=== PATIENT | male | born 1950 | race Caucasian/White ===

== ENCOUNTER 2017-04-24 10:35 | Day surgery (SDC) | payer MEDICARE, BC ==
[~2017-04-24 10:35] MED LIST: ALEN1TAB48 PO; ATOR40TA16 PO; CALC1CAP PO; FURO40TA PO; HUMALOG SQ; INSU1INJ5 SQ; LANCETS1 MI1; LEVO25TA4 PO; LYRI50CA PO; MIDO10TA PO; OMEP20CA2 PO; ONDA4TAB7 SL; ONETTES4; PRED5TAB PO; PREG25 PO; TUMS500C PO
[2017-04-24] MEDS ORDERED: CHLORHEXIDINE GLUCONATE 2 % 1 PACK (2 CLOTHS) TOPICAL SCH (11:00)
[2017-04-24] MEDS ORDERED: VANCOMYCIN 1000 MG/NS 250 ML IV SCH ×2 (11:00)
[2017-04-24] MEDS ORDERED: MUPIROCIN 2% OINT 1 APPLIC/GM SYR NASAL SCH (11:00)
[2017-04-24] MEDS ORDERED: ceFAZolin 2 GM PREMIX 50 ML IV SCH (11:00)
[2017-04-24] MEDS ORDERED: NS 1000 ML IV SCH (11:00)
[2017-04-24] MEDS ORDERED: POVIDONE IODINE 5% (ANTISEPSIS KIT) 4 APPLICATIONS EACH NARE SCH (11:00)
[2017-04-24] MEDS ORDERED: NEPHTAB3 PO (11:38)
--- NOTE | 2017-04-24 13:19 | MA ---
cc: DARON PARHAM MD DATE 04/24/[address] Daron Parham PROCEDURE PERFORMED Loop recorder insertion INDICATION Atrial fibrillation diagnosis DESCRIPTION OF PROCEDURE The patient was brought to the DOC unit in the postabsorptive state after informed consent was obtained. A [employer] LINQ loop recorder was inserted subcutaneously to the left chest. The patient tolerated the procedure well without any apparent complications. The initial R-wave was 0.28 mV. Tachybrady pause and atrial fibrillation detection was enabled. The serial number was [id number]. MD VIN Resendiz/ANITA /1:14 PM /1:16 PM
== END 2017-04-24 15:40 | disposition home or self-care (01) ==
LOC: HDOC 10:35 → HDIC 10:35 → HDOC 15:40
PROVIDERS: ATTEND Nuclear Medicine Nuclear Cardiology
DX: I48.91 Unspecified atrial fibrillation (principal); I95.9 Hypotension, unspecified; E78.5 Hyperlipidemia, unspecified; I12.0 Hypertensive chronic kidney disease with stage 5 chronic kidney disease or end stage renal disease; N18.6 End stage renal disease; E11.9 Type 2 diabetes mellitus without complications; Z79.4 Long term (current) use of insulin; Z99.2 Dependence on renal dialysis
CPT/HCPCS: 33282; C1764; J0690; J7030

== ENCOUNTER → 2017-05-18 | Outpatient (CLI) | payer MEDICARE, BC ==
[~2017-05-18] MED LIST changes: +LYRI75CA PO; +NEPHTAB3 PO; -ONDA4TAB7 SL; +RITU500I IV; +[UNRECOGNIZED DRUG - OTHER]
== END ==
LOC: PHPRE 14:09
PROVIDERS: ATTEND Ophthalmology
DX: H26.9 Unspecified cataract (principal)

== ENCOUNTER → 2017-06-01 | Day surgery (SDC) | payer MEDICARE, BC ==
--- NOTE | 2017-05-21 08:43 | MH ---
cc: HEIDY TRAN DATE OF ADMISSION 06/01/2017 ADMISSION DIAGNOSIS Cataract left eye. HISTORY OF PRESENT ILLNESS This 66-year-old white male is coming through [facility] for the purpose of a lens extraction of the left eye with intraocular lens implant under local anesthesia. He has noted to have decreasing visual acuity interfering with his daily activities and elected to have the above procedure. His best corrected visual acuity is 20/25 in the right eye and 20/200 in the left eye. This decreases in room light and 20/30 in the right eye and less than 20/200 in the left eye. PAST MEDICAL HISTORY The patient has a history of: 1. 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 2. He also has thyroid problems. 3. Cholesterol problems 4. Diabetes 5. Low blood pressure SOCIAL HISTORY He says he quit smoking in July of 2015. PAST SURGICAL HISTORY 1. Sinus surgery 2. Surgery for a fistula on the left arm. 3. Heart loop recorder implant. MEDICATIONS Daily medications include: 1. Rituxan 2. Levothyroxine 3. Prednisone 2.5 mg 4. Atorvastatin 5. Omeprazole 6. Calcium acetate 7. Furosemide 8. Lyrica 9. Vitamin D 10. Vitamins with the AREDS-2 type. 11. Lantus and Humalog insulin 12. Alendronate 13. Sodium 14. Vitamin E 15. He gets Midodrine during his dialysis to raises blood pressure and heparin with the dialysis as well. ALLERGIES HE IS ALLERGIC TO SULFA. SOCIAL HISTORY Two pack per day smoker for 50 years and does not drink alcohol. FAMILY HISTORY Positive for mother and sister with cataracts and mother with glaucoma. REVIEW OF SYSTEMS HEAD: Patient denies severe headaches, dizziness or recent head injury. EARS: Patient has tinnitus in his ears bilaterally. Denies hearing loss, ear pain, or discharge in the ears. NOSE: Patient denies nasal discharge, obstruction or frequent colds. MOUTH AND THROAT: Patient denies soreness of the mouth or tongue, bleeding gums, trouble swallowing, changes in voice or sore throat. NECK: Patient denies neck pain or swelling, limitation of neck movement or neck injury. CARDIOPULMONARY SYSTEM: Denies shortness of breath, orthopnea, chronic cough, sputum production, hemoptysis, chest pain, wheezing, or light-headedness. GI SYSTEM: Patient denies poor appetite, nausea, vomiting, abdominal pain, ulcers, hemorrhoids or change in bowel habits. SYSTEM: The patient denies urinary frequency, dysuria, change in urine color. NERVOUS SYSTEM: He has a neuropathy in his hands and feet. Patient denies convulsions, vertigo, stroke, numbness or weakness. PHYSICAL EXAMINATION VITAL SIGNS: Blood pressure is 96/58, pulse 68, respirations 16. HEAD: Normocephalic, atraumatic. NOSE: Without rhinorrhea. THROAT: Clear. NECK: Supple. CHEST: Clear. HEART: Regular rhythm. ABDOMEN: Without tenderness. EXTREMITIES: Without edema. NEUROLOGIC: Within normal limits. MENTAL STATUS: Within normal limits. EYE EXAMINATION The patient's best corrected visual acuity is 20/30 in the right eye and less than 20/200 in room light. In a dark room, he does see 20/25 in the right eye, but still only 20/200 in the left eye. Visual tipton are full to confrontation testing. Extraocular muscle exam reveals full versions with orthophoria at distance and near. Pupils are 3 mm equal, round, and reactive to light without afferent defect. Anterior segment examination reveals iris nevi in both eyes. There are nuclear sclerotic and posterior subcapsular cataract changes much greater in the left eye than the right. Intraocular pressure is 18 in the right eye and 15 in the left by applanation tonometry. Dilated fundus exam revealed sharp disks with cup-to-disk ratio of 0.3 bilaterally. There is some drusen in the macula of each eye and epiretinal membrane is present in the macula of each eye. A posterior vitreous detachment is present bilaterally. IMPRESSION 1. Bilateral cataracts, left greater than right. 2. Posterior vitreous detachment both eyes. 3. Epiretinal membrane both eyes. 4. Mild dry macular degeneration both eyes. PLAN Lens extraction of the left eye with intraocular lens implant under local anesthesia. Iris retractors will be used in this case as the pupils do not dilate well. The patient has been cleared medically. He has been counseled as to the risks, benefits and alternatives and elected to proceed. I feel that cataract surgery will improve the quality of life and activities of daily living in this patient. Heidy N. Share, MD SECONDARY MARKET MANAGER/ANITA /8:22 AM /8:36 AM
[~2017-06-01] VITALS: Ht 180.3 cm; Wt 104.5 kg
[~2017-06-01] MED LIST changes: +ACETYLCHOLINE CHL OPHT SOLN 1:100 2 ML VIAL ONE; +CHLORHEXIDINE GLUCONATE 2 % 1 PACK (2 CLOTHS) TOPICAL PRN; +CYCLOPENTOLATE HCL 1% OPHT SOLN 2 ML BTL ONE; +DICLOFENAC SOD 0.1% OPHT SOLN 2.5 ML BTL ONE; +EPINEPHrine HCL PF/SF (1:1000) 1 MG/ML AMP I-OCULAR ONE; +GATIFLOXACIN 0.5% OPHT SOLN 2.5 ML BTL ONE; +HYALURONIDASE/LIDOCAINE/BUPIVACAINE 5 ML SYR LEFT EYE SCH; +HYALURONIDASE/LIDOCAINE/BUPIVACAINE 5 ML SYR ONE; +LACTATED RINGER'S 1000 ML IV PRN; -LYRI50CA PO; +METOPROLOL TARTRATE 25 MG TAB PO PRN; +PHENYLEPHRINE HCL 2.5% OPTH SOLN 2 ML BTL ONE; +PILOCARPINE HCL 2% OPHT SOLN 15 ML BTL ONE; +POVIDONE IODINE 5% (ANTISEPSIS KIT) 4 APPLICATIONS EACH NARE PRN; -PRED5TAB PO; -PREG25 PO; +PROPARACAINE HCL 0.5% OPHT SOLN 15 ML BTL LEFT EYE ONE; +PROPARACAINE HCL 0.5% OPHT SOLN 15 ML BTL ONE; +PROPOFOL 200 MG/20 ML AMP ONE; +SODIUM CHLORID 0.9% 500 ML INJ 500 ML ONE; +SODIUM CHLORID 0.9% 500 ML IV PRN; +TOBRAMYCIN/DEXAMETHASONE OPTH OINT 3.5 GM TUBE ONE; +TROPICAMIDE 1% OPHT SOLN 15 ML BTL ONE; -TUMS500C PO; +VISCOAT OPHT IRRIG SOLN 0.75 ML SYRINGE ONE
[2017-06-01 10:20] VITALS: PULSE 84
[2017-06-01] MEDS: GATIFLOXACIN 0.5% OPHT SOLN 2.5 ML BTL LEFT EYE SCH ×4 (10:23→10:32)
[2017-06-01] MEDS: DICLOFENAC SOD 0.1% OPHT SOLN 2.5 ML BTL LEFT EYE SCH ×4 (10:23→10:32)
[2017-06-01] MEDS: CYCLOPENTOLATE HCL 1% OPHT SOLN 2 ML BTL LEFT EYE SCH ×4 (10:23→10:32)
[2017-06-01] MEDS: TROPICAMIDE 1% OPHT SOLN 15 ML BTL LEFT EYE SCH ×4 (10:23→10:32)
[2017-06-01] MEDS: PHENYLEPHRINE HCL 2.5% OPTH SOLN 2 ML BTL LEFT EYE SCH ×4 (10:23→10:32)
[2017-06-01 10:56] VITALS: PULSE 83
[2017-06-01 13:35] VITALS: TEMP 98.2
--- NOTE | 2017-06-01 13:38 | MP ---
cc: HEIDY PAYTON DATE OF SURGERY: 06/01/2017 PREOPERATIVE DIAGNOSIS Cataract, left eye. POSTOPERATIVE DIAGNOSIS Cataract, left eye. OPERATION Extracapsular cataract extraction with posterior chamber intraocular lens implant by phacoemulsification, left eye. SURGEON Heidy Payton M.D. ANESTHESIA Local. COMPLICATIONS None. INDICATIONS See history and physical previously dictated. OPERATIVE PROCEDURE The patient had adequate retrobulbar and eyelid blocks administered in the holding area and was brought to the operating room. The left eye was prepped and draped in the usual sterile ophthalmic manner. A lid speculum was inserted in the left eye. A 4-0 silk bridle suture was placed through the conjunctiva near the superior rectus muscle and it was tagged to the drape. A fornix-based conjunctival flap was prepared spanning approximately 5 mm in width. Hemostasis was obtained with wet-field cautery. A 3.5 mm groove was made 1 mm from the limbus and dissected up to the limbus in the form of a scleral pocket incision. A stab incision was then made at the 2 o'clock position. Viscoelastic was injected into the anterior chamber. In order to maintain an adequately dilated pupil, it was elected to use iris retractors in this case. Stab incisions were made at the 1 o'clock, 3 o'clock, 5 o'clock, 8 o'clock and 10 o'clock positions. Iris retractors were then inserted through the stab incisions in the peripheral cornea and positioned to enlarge the size of the pupil. The anterior chamber was entered with a 2.75 mm keratome through the scleral pocket incision. A 360 degree continuous curvilinear capsulorrhexis was then performed. Hydrodissection was utilized to divide the nucleus into inner and outer components and to separate the cortex from the capsule. Phacoemulsification was then utilized to remove the nucleus. The outer nuclear layer was removed with irrigation and aspiration and short bursts of ultrasound as necessary. The cortex was removed with the irrigation-aspiration handpiece. The posterior capsule was polished with the capsule polisher. Viscoelastic was injected into the capsular bag. The intraocular lens was inspected and found to be in good condition. The lens utilized was an Ivan model SA60AT with a power of +18.5 diopters. The lens was inserted into the capsular bag. The five iris retractors were removed. The viscoelastic in the anterior chamber was then removed with the irrigation-aspiration hand piece. Viscoelastic was also removed from beneath the intraocular lens. The anterior chamber was filled with Miochol-E through the stab incision and pressurized. The wound was checked for leaks at this pressure and normalized pressure and there were none. The 4-0 bridle suture was removed. The conjunctival flap was brought down over the wound and secured with cautery. Pilocarpine 2% eye drops were instilled topically. The lid speculum was removed. TobraDex ophthalmic ointment was applied. The eye was double patched and shielded. The patient tolerated the procedure well and left the Operating Room in satisfactory condition. MD REJI Marques/DAVID /1:37 PM /1:39 PM
[2017-06-01 14:30] VITALS: BP 102/53; PULSE 69; RESP 16; O2SAT 99
== END | disposition home or self-care (01) ==
LOC: PHSDC 09:42
PROVIDERS: ATTEND Ophthalmology
DX: H26.9 Unspecified cataract (principal); H43.813 Vitreous degeneration, bilateral; E11.9 Type 2 diabetes mellitus without complications; Z79.4 Long term (current) use of insulin
CPT/HCPCS: 00142; 66984; J0171; J7040; V2632

== ENCOUNTER 2017-10-09 14:13 | Inpatient (IN) | payer MEDICARE, BC ==
[2017-10-09] VITALS (11 sets, daily range): BP systolic 105–164; BP diastolic 56–84; PULSE 46–128; RESP 20–24; TEMP 91.4–97.2; O2SAT 94–100
[~2017-10-09 14:13] MED LIST changes: -ACETYLCHOLINE CHL OPHT SOLN 1:100 2 ML VIAL ONE; +AMIODARONE HCL 150 MG/3 ML VIAL IV ONE; +CALCIUM CHLORIDE 10% SOLN 1 GRAM/10 ML SYR IV ONE; -CHLORHEXIDINE GLUCONATE 2 % 1 PACK (2 CLOTHS) TOPICAL PRN; -CYCLOPENTOLATE HCL 1% OPHT SOLN 2 ML BTL ONE; -DICLOFENAC SOD 0.1% OPHT SOLN 2.5 ML BTL ONE; +EPINEPHrine HCL (1:10,000) 1 MG/10 ML SYRINGE IV ONE; -EPINEPHrine HCL PF/SF (1:1000) 1 MG/ML AMP I-OCULAR ONE; -GATIFLOXACIN 0.5% OPHT SOLN 2.5 ML BTL ONE; +HUMA100I3 SQ; -HUMALOG SQ; -HYALURONIDASE/LIDOCAINE/BUPIVACAINE 5 ML SYR LEFT EYE SCH; -HYALURONIDASE/LIDOCAINE/BUPIVACAINE 5 ML SYR ONE; -LACTATED RINGER'S 1000 ML IV PRN; -LANCETS1 MI1; -METOPROLOL TARTRATE 25 MG TAB PO PRN; +NOREPINEPHRINE 4 MG/4 ML AMP IV ONE; -ONETTES4; -PHENYLEPHRINE HCL 2.5% OPTH SOLN 2 ML BTL ONE; -PILOCARPINE HCL 2% OPHT SOLN 15 ML BTL ONE; -POVIDONE IODINE 5% (ANTISEPSIS KIT) 4 APPLICATIONS EACH NARE PRN; -PROPARACAINE HCL 0.5% OPHT SOLN 15 ML BTL LEFT EYE ONE; -PROPARACAINE HCL 0.5% OPHT SOLN 15 ML BTL ONE; -PROPOFOL 200 MG/20 ML AMP ONE; +SODIUM BICARBONATE 8.4% INJ 50 MEQ/50 ML SYR IV ONE; -SODIUM CHLORID 0.9% 500 ML INJ 500 ML ONE; -SODIUM CHLORID 0.9% 500 ML IV PRN; -TOBRAMYCIN/DEXAMETHASONE OPTH OINT 3.5 GM TUBE ONE; -TROPICAMIDE 1% OPHT SOLN 15 ML BTL ONE; -VISCOAT OPHT IRRIG SOLN 0.75 ML SYRINGE ONE; -[UNRECOGNIZED DRUG - OTHER]
[2017-10-09] MEDS ORDERED: SODIUM CHLORIDE 0.9% FLUSH 10 ML FLUSH IVF PRN (15:00)
[2017-10-09] MEDS ORDERED: EPINEPHrine HCL (1:10,000) 1 MG/10 ML SYRINGE ONE (15:03)
--- NOTE | 2017-10-09 15:07 | PD ---
HPI Chief Complaint: Code Blue Time Seen by Provider: 15:03 Travel History International Travel<30 days: No Contact w/Intl Traveler<30days: No Traveled to known affect area: No History of Present Illness HPI 67-year-old male with a history of end-stage renal disease, dialysis dependent, polyangiitis, who presents via EMS in cardiac arrest. Patient was apparently receiving hemodialysis at home when family members state he yelled out. When family members went into see to evaluate him, they found him unresponsive. When paramedics arrived they found him to be in V. fib cardiac arrest. He was defibrillated twice and pulses were regained. Shortly after EVAC arrived, he was intubated. He went back into V. fib arrest. He had 3 further defibrillation's and 3 rounds of epinephrine. He arrived in cardiac arrest and CPR was in progress. [facility] Past Medical History Arthritis: Yes Autoimmune Disease: No Heart Rhythm Problems: No Cancer: Yes (SKIN CA) Cardiovascular Problems: Yes (IRREGULAR HEART RATE (LOOP RECORDER PLACED) ) High Cholesterol: Yes Chest Pain: No Congestive Heart Failure: No Diabetes: Yes (type 2) Patient Takes Glucophage: No Dialysis: Yes ( THUR SAT) Diminished Hearing: No Endocrine: Yes Gastrointestinal Disorders: Yes (CONSTIPATION ) Genitourinary: Yes Hepatitis: No Hiatal Hernia: No Hypertension: Yes Immune Disorder: No Medical other: Yes (MICROSCOPIC POLYANGIITIS) Musculoskeletal: Yes (WRIST/HAND PAIN R/T NEUROPATHY) Neurologic: Yes (Peripheral neuropathy HANDS & FEET) Psychiatric: No Reproductive: No Respiratory: No Immunizations Current: Yes Renal Failure: Yes (ESRD) Thyroid Disease: No Past Surgical History Surgical History: Unable to Obtain Abdominal Surgery: No AICD: No Body Medical Devices: LOOP RECORDER, LEFT ARM FISTULA Cardiac Surgery: No Ear Surgery: No Endocrine Surgery: No Eye Surgery: Yes (LEFT EYE CATARACT REMOVAL WITH LENS IMPLANT) Genitourinary Surgery: No Gynecologic Surgery: No Joint Replacement: No Oral Surgery: Yes (SINUS SURERY DUE TO OBSTRUCTION) Pacemaker: No Thoracic Surgery: Yes (HEMODIALYSIS PORT R CHEST (REMOVED)) Other Surgery: Yes ( FISTULA PLACEMENT (LEFT ARM)) Social History Alcohol Use: No Tobacco Use: No Substance Use: No Allergies-Medications (Allergen,Severity, Reaction): Coded Allergies: Sulfa (Sulfonamide Antibiotics) (Unverified Allergy, Mild, hives, 09/14/17) Reported Meds & Prescriptions Reported Meds & Active Scripts Active Humalog Kwikpen Pen Inj (Insulin Lispro (Human) Inj) 300 Unit/3 Ml Pen 1 Units SQ DIRECTED Omeprazole 20 Mg Cap 20 Mg PO DAILY Furosemide 40 Mg Tab 40 Mg PO DAILY Levemir Flextouch Pen Inj (Insulin Detemir) 300 unit/3 ML Pen 12 Units SQ BID Levothyroxine (Levothyroxine Sodium) 25 Mcg Tab 25 Mcg PO DAILY Lyrica (Pregabalin) 75 Mg Cap 75 Mg PO BID Atorvastatin (Atorvastatin Calcium) 40 Mg Tab 40 Mg PO HS Calcium Acetate (Phosphate Binder) 667 Mg Cap 667 Mg PO TID Reported Rituxan Inj (Rituximab) 10 Mg/Ml Inj IV EVERY 6 MONTHS Nephro-Hugo (B-Complex W/ C & Folic Acid) 1 Tab 1 Tab PO DAILY Alendronate (Alendronate Sodium) 70 Mg Tab 70 Mg PO Q7D Midodrine 10 Mg Tab 10 Mg PO WITH DIALYSIS Review of Systems ROS Limitations: Intubated Except as stated in HPI: all other systems reviewed are Neg (Cardiac arrest) Physical Exam Narrative GENERAL: Well developed well-nourished gentleman who is intubated and chest compressions were in place. SKIN: Focused skin assessment warm/dry. HEAD: Atraumatic. Normocephalic. EYES: Pupils equal and round and reactive around 3 mm. Minimally reactive.. No scleral icterus. No injection or drainage. ENT: No nasal bleeding or discharge. Mucous membranes pink and moist. ET tube in place. 7.0 at the 24 Denys NECK: Trachea midline. Large neck. No palpable carotid pulses initially. CARDIOVASCULAR: V. fib on the monitor. RESPIRATORY: Breath sounds equal bilaterally. The patient was being bagged through the ET tube. ABDOMEN: Soft, obese, nondistended. There is bruising noted is infraumbilical area. MUSCULOSKELETAL: No obvious deformities. No clubbing. No cyanosis. No edema. Left intraosseous in place. NEUROLOGICAL: Awake and alert 0. Cardiac arrest. Data Data Last Documented VS Vital Signs Date Time Temp Pulse Resp B/P (MAP) Pulse Ox O2 Delivery O2 Flow Rate FiO2 10/09/17 14:57 127 20 142/73 (96) 100 100 10/09/17 14:52 Ventilator Orders Orders Electrocardiogram (10/09/17 14:48) Ckmb (Isoenzyme) Profile (10/09/17 14:48) Complete Blood Count With Diff (10/09/17 14:48) Comprehensive Metabolic Panel (10/09/17 14:48) Magnesium (Mg) (10/09/17 14:48) Prothrombin Time / Inr (Pt) (10/09/17 14:48) Act Partial Throm Time (Ptt) (10/09/17 14:48) Troponin I (10/09/17 14:48) Chest, Single Ap (10/09/17 14:48) Ecg Monitoring (10/09/17 14:48) Bilateral Bp Monitoring (10/09/17 14:48) Iv Access Insert/Monitor (10/09/17 14:48) Oximetry (10/09/17 14:48) Oxygen Administration (10/09/17 14:48) Sodium Chloride 0.9% Flush (Ns Flush) (10/09/17 15:00) Type And Screen (10/09/17 14:48) Lactic Acid Sepsis Protocol (10/09/17 14:55) Blood Culture (10/09/17 14:55) Epinephrine (1:10,000) Inj (Epinephrine (10/09/17 15:03) Ct Brain W/O Iv Contrast(Rout) (10/09/17 ) Labs Laboratory Tests Test 10/09/17 14:50 Prothrombin Time 11.5 SEC Prothromb Time International Ratio 1.1 RATIO Activated Partial Thromboplast Time 24.3 SEC MDM Medical Decision Making Medical Screen Exam Complete: Yes Emergency Medical Condition: Yes Differential Diagnosis V. fib arrest versus hyperkalemia versus STEMI Narrative Course 67-year-old male with history of renal failure, hemodialysis dependent patient, who is brought in in V. fib cardiac arrest by EMS. Patient had received a total of 5 defibrillations and 3 mg of epinephrine. Patient arrived in V. fib arrest. Patient was intubated. The patient was given epinephrine, 1 mg, 100 mEq of sodium bicarbonate, 1000 mg of calcium chloride and 300 mg of amiodarone. The patient was defibrillated into sinus tach. Patient's heart rate was in the 120s. A central line was placed by this physician. Shortly after the placement central line the patient started a bradycardia down. 0.5 mg of epinephrine was given IV and a Levophed drip was ordered. The patient went back into cardiac arrest. The patient was given another dose of epinephrine, another 50 mEq of epinephrine and 150 mg of IV amiodarone. The patient was defibrillated again. Pulses were obtained. The patient had Levophed initiated initially at 5 mcg. The micrograms were increased to 20 mics. The patient's EKG postarrest shows ST depression in the lateral leads. There is no obvious acute ST elevation. The patient was discussed with Dr. Froylan Forbes, cutter wet machine, who is at the bedside after the second defibrillation into sinus tach. He will arrange to take the patient to the CVICU and will initiate hypothermia protocol. Critical Care Narrative Aggregate critical care time was 60 minutes. Time to perform other separately billable procedures was not included in the critical care time. My time did not include minutes spent treating any other patients simultaneously or on activities that did not directly contribute to the patient's treatment. The services I provided to this patient were to treat and/or prevent clinically significant deterioration that could result in: I provided critical care services requiring my management, as noted below: Chart data review, documentation time, medication orders and management, vital sign assessments/reviewing monitor data, ordering and reviewing lab tests, ordering and interpreting/reviewing x-rays and diagnostic studies, care of the patient and discussion of the patient with the admitting physicians. Procedures Procedure Narrative CENTRAL VENOUS LINE: The site was prepped with Betadine and sterilely draped. It was infiltrated with 1% lidocaine plain. The deep vein was cannulated using normal Seldinger technique. A central line was placed in the right femoral site and secured. The site was sterilely dressed. The patient tolerated the procedure well. Diagnosis Primary Impression: V. fib cardiac arrest with return of spontaneous circulation Additional Impressions: End-stage renal disease, dialysis dependent Diabetes mellitus type 2, insulin dependent Admitting Information Admitting Physician Requests: Admit Gil Snow MD Oct 09, 2017 15:07
[2017-10-09 15:26] LABS: INTERNATIONAL NORMALIZED RATIO 1.1 RATIO; PROTHROMBIN TIME - PATIENT 11.5 SEC (9.8-11.6)
--- NOTE | 2017-10-09 15:31 | RADRPT ---
EXAM DATE/TIME: 10/09/2017 15:17 [facility] COMPARISON: CT BRAIN W/O CONTRAST, February 08, 2016, 13:33. INDICATIONS : Altered mental status, post code. RADIATION DOSE: 43.15 CTDIvol (mGy) MEDICAL HISTORY : Renal disease, end stage. Hypercholesterolemia. Vented. SURGICAL HISTORY : Sinus sx. ENCOUNTER: Initial ACUITY: 1 day PAIN SCALE: Non-responsive LOCATION: Bilateral cranial TECHNIQUE: Multiple contiguous axial images were obtained of the head. Using automated exposure control and adj ustment of the mA and/or kV according to patient size, radiation dose was kept as low as reasonably a chievable to obtain optimal diagnostic quality images. DICOM format image data is available electro nically for review and comparison. FINDINGS: There is streak and motion artifact degrading the lower images through the posterior fossa and brain stem regions which are poorly visualized. CEREBRUM: The ventricles are normal for age. No evidence of midline shift, mass lesion, hemorrhage or acute in farction. No extra-axial fluid collections are seen. POSTERIOR FOSSA: The cerebellum and brainstem are intact. The 4th ventricle is midline. The cerebellopontine angle i s unremarkable. EXTRACRANIAL: The visualized portion of the orbits is intact. SKULL: The calvaria is intact. No evidence of skull fracture. CONCLUSION: 1. Suboptimal examination secondary to streak and motion artifact. 2. No evidence of hemorrhage or mass effect identified. Lux Murphy MD on October 09, 2017 at 15:26 Board Certified Radiologist. This report was verified electronically.
[2017-10-09 15:33] LABS: AST (GOT) 76 U/L (15-37); BICARBONATE 21.8 MEQ/L (21.0-32.0); BLOOD UREA NITROGEN 35 MG/DL (7-18); CALCIUM 9.7 MG/DL (8.5-10.1); CHLORIDE 98 MEQ/L (98-107); CREATININE 6.19 MG/DL (0.60-1.30); GLOMERULAR FILTRATION RATE 9 ML/MIN (>89); GLUCOSE,RANDOM 353 MG/DL (74-106); MAGNESIUM 2.5 MG/DL (1.5-2.5); SODIUM (NA) 139 MEQ/L (136-145)
[2017-10-09 15:35] LABS: LACTIC ACID SEPSIS PROTOCOL 11.9 mmol/L (0.4-2.0)
[2017-10-09 15:38] LABS: ALKALINE PHOSPHATASE 125 U/L (45-117); ALT (GPT) 83 U/L (12-78); TOTAL BILIRUBIN ADULT 0.6 MG/DL (0.2-1.0); TOTAL PROTEIN 5.7 GM/DL (6.4-8.2)
--- NOTE | 2017-10-09 15:38 | RADRPT ---
EXAM DATE/TIME: 10/09/2017 14:53 [facility] COMPARISON: CHEST SINGLE AP, May 28, 2016, 8:56. INDICATIONS : Post intubation, nasogastric tube, post code. MEDICAL HISTORY : Hypercholesterolemia. Hypertension. Diabetes mellitus type 2. End stage renal disease. SURGICAL HISTORY : Loop recorder ENCOUNTER: Initial ACUITY: Encounter PAIN SCORE: Non-responsive. LOCATION: chest FINDINGS: A single AP supine portable view of the chest was obtained. The tip of the lung apices were cut off t he exam. There is an endotracheal tube in place with the tip approximately 5 cm above the alejandra. The re's been placement of nasogastric tube which is seen coursing through the esophagus and proximal sto mach. No confluent infiltrates or effusions are identified. The heart size appears at the upper limit s of normal. The bony thorax remains intact. CONCLUSION: 1. Interval intubation and placement of nasogastric tube. 2. No confluent infiltrates or effusions. Lux Murphy MD on October 09, 2017 at 15:35 Board Certified Radiologist. This report was verified electronically.
[2017-10-09 15:44] LABS: TROPONIN I 1.48 NG/ML (0.02-0.05)
[2017-10-09] MEDS: SODIUM CHLOR 0.9% 1000 ML INJ 1,000 ML IV SCH (16:23)
[2017-10-09] MEDS ORDERED: AMIODARONE INJ 150 MG in DEXTROSE 5% IN WATER 100ML INJ 100 ML IV ONE ×2 (16:23)
[2017-10-09] MEDS ORDERED: MIDAZOLAM 100 MG/100 ML INJ 100 ML IV PRN (16:30)
[2017-10-09] MEDS ORDERED: busPIRone HCL 5 MG TAB NG PRN (16:30)
[2017-10-09] MEDS ORDERED: DEXTROSE 50% IN WATER 50 ML VIAL(D50) IV PUSH PRN (16:30)
[2017-10-09] MEDS ORDERED: ONDANSETRON HCL 4 MG/2 ML VIAL IV PUSH PRN (16:30)
[2017-10-09] MEDS ORDERED: fentaNYL DRIP 250 ML IV PRN (16:30)
[2017-10-09] MEDS ORDERED: ACETAMINOPHEN 325 MG TAB PO PRN (16:30)
[2017-10-09] MEDS ORDERED: HEPARIN SODIUM - IV 10,000 UNITS/10 ML VIAL IV PUSH ONE (16:30)
[2017-10-09] MEDS ORDERED: ASPIRIN 300 MG SUPP RECTAL ONE (16:30)
[2017-10-09] MEDS ORDERED: LORazepam 2 MG/ML VIAL IV PUSH PRN (16:30)
[2017-10-09] MEDS ORDERED: ARTIFICIAL TEARS OPTH OINT 3.5 APPLIC/3.5 GM TUBO EACH EYE PRN (16:30)
[2017-10-09] MEDS ORDERED: SODIUM CHLORIDE 0.9% FLUSH 10 ML FLUSH IV FLUSH PRN (16:30)
[2017-10-09] MEDS ORDERED: CHLORHEXIDINE GLUCONATE 2 % 1 PACK (2 CLOTHS) TOP PRN (16:30)
[2017-10-09] MEDS ORDERED: MEPERIDINE HCL 25 MG/ML VIAL IV PUSH PRN (16:30)
[2017-10-09] MEDS ORDERED: MISCELLANEOUS NURSING INFORMATION XX SCH (16:30)
[2017-10-09] MEDS ORDERED: RESP: ALBUTEROL 2.5 MG/IPRATROPIUM 0.5 MG NEB (PRN) INH (16:30)
[2017-10-09] MEDS ORDERED: AMIODARONE INJ 450 MG in DEXTROSE 5% IN WATE(EXCEL) INJ 241 ML IV PRN ×2 (16:33)
--- NOTE | 2017-10-09 16:39 | HHI.HP ---
HPI Service Critical Care Medicine Primary Care Physician No Primary Care Physician Admission Diagnosis v fib cardiac arrest with ROSC, renal failure hemodialysis dependent Diagnosis: Chief Complaint: Out of hospital V-fib arrest Travel History International Travel<30 Days: No Contact w/Intl Traveler <30 Da: No Traveled to Known Affected Are: No History of Present Illness This is a 67-year-old male with a history of end-stage renal disease on home hemodialysis who presents from home where he was actively undergoing dialysis and slumped over and became unresponsive. Per EMS initial rhythm was ventricular fibrillation he was defibrillated a number of times in the out of hospital setting. ACLS ensued. ACLS was ongoing when he reached the emergency department which was continued. After multiple additional DC cardioversions, ROSC was obtained. I was called emergently to the bedside. I immediately came to the bedside and found an unresponsive patient with pupils which were 4 mm and reactive but otherwise is a GCS of 3. No additional information is available from the patient, and ROS is unobtainable. Per review of the medical record, he has a complicated history and was recently had a loop recorder placed in April 2017, but I do not of the indication for this. His head CT is negative for acute bleed. His BMP is remarkable for potassium 3.1, creatinine of 6.19, glucose of 353, troponin is elevated at 1.48, lactate is 11.9 initially. White blood cell count of 23,000, hemoglobin 7.9 with an unknown baseline. Due to his poor neurologic function and the clear timeline from event to ROSC, therapeutic hypothermia was initiated per Review of Systems ROS Limitations: Clinical Condition, Intubated, Altered Mental Status, Unresponsive Past Family Social History Allergies: Coded Allergies: Sulfa (Sulfonamide Antibiotics) (Unverified Allergy, Mild, hives, 09/14/17) Past Medical History To the emergent nature of the consult and the patient's medical condition, his past medical history is unobtainable. Per discussions with the ER physician, the patient has a history of end-stage renal disease and ANCA positive polyangiitis as well as diabetes. For complete past medical history, please see prior medical records. Past Surgical History Unknown unobtainable due to the patient's clinical condition. For complete past surgical history, please refer to prior records in our system. Reported Medications Humalog Kwikpen Pen Inj (Insulin Lispro (Human) Inj) 300 Unit/3 Ml Pen 1 Units SQ DIRECTED Omeprazole 20 Mg Cap 20 Mg PO DAILY Furosemide 40 Mg Tab 40 Mg PO DAILY Levemir Flextouch Pen Inj (Insulin Detemir) 300 unit/3 ML Pen 12 Units SQ BID Levothyroxine (Levothyroxine Sodium) 25 Mcg Tab 25 Mcg PO DAILY Lyrica (Pregabalin) 75 Mg Cap 75 Mg PO BID Atorvastatin (Atorvastatin Calcium) 40 Mg Tab 40 Mg PO HS Calcium Acetate (Phosphate Binder) 667 Mg Cap 667 Mg PO TID Rituxan Inj (Rituximab) 10 Mg/Ml Inj IV EVERY 6 MONTHS Nephro-Hugo (B-Complex W/ C & Folic Acid) 1 Tab 1 Tab PO DAILY Alendronate (Alendronate Sodium) 70 Mg Tab 70 Mg PO Q7D Midodrine 10 Mg Tab 10 Mg PO WITH DIALYSIS Active Ordered Medications See MAR Family History Unknown unobtainable secondary clinical condition the patient Social History Unobtainable secondary clinical condition the patient. Please refer to prior documents in our medical system. Physical Exam Vital Signs Vital Signs Date Time Temp Pulse Resp B/P (MAP) Pulse Ox O2 Delivery O2 Flow Rate FiO2 10/09/17 15:51 10/09/17 15:39 99 100 10/09/17 14:57 127 20 142/73 (96) 100 100 10/09/17 14:52 128 20 100 Ventilator 100 10/09/17 14:52 100 Ventilator 100 10/09/17 14:50 100 10/09/17 14:41 90 Bag Valve 10/09/17 14:23 100 100 Physical Exam GENERAL: Middle-age male, lying in bed, intubated, obtunded, unresponsive HEENT: Normocephalic. Atraumatic. Pupils 4 mm equal, round, reactive, conjugate. Mucous membranes are moist NECK: Trachea is midline. There is no JVD. CHEST: Equal chest rise. Intermittent agonal respirations. PRVC. 80% FiO2. CARDIOVASCULAR: Tachycardic rate, irregularly irregular rhythm. Appears A. fib by telemetry. There is evidence of CPR with ecchymoses over the anterior chest. ABDOMEN: Soft, nontender, nondistended. No guarding. MUSCULOSKELETAL: Pulses 2+. No peripheral edema. Extremities are cool and poorly perfused. There is a right femoral triple lumen catheter placed in the ER with the dressing clean dry and intact. NEUROLOGICAL: RASS -5. GCS 3. Pupils as above. Negative cough. Negative gag. Positive corneals. Patient has not received any neuromuscular blockade or sedation since EMS arrived. Laboratory Laboratory Tests Test 10/09/17 14:50 Prothrombin Time 11.5 Prothromb Time International Ratio 1.1 Activated Partial Thromboplast Time 24.3 Blood Urea Nitrogen 35 Creatinine 6.19 Random Glucose 353 Total Protein 5.7 Albumin 3.0 Calcium Level 9.7 Magnesium Level 2.5 Alkaline Phosphatase 125 Aspartate Amino Transf (AST/SGOT) 76 Alanine Aminotransferase (ALT/SGPT) 83 Total Bilirubin 0.6 Sodium Level 139 Potassium Level 3.1 Chloride Level 98 Carbon Dioxide Level 21.8 Anion Gap 19 Estimat Glomerular Filtration Rate 9 Lactic Acid Level 11.9 Total Creatine Kinase 86 Troponin I 1.48 Date/Time Source Procedure Growth Status 10/09/17 16:00 Blood Peripheral Aerobic Blood Culture Pending Received 10/09/17 16:00 Blood Peripheral Anaerobic Blood Culture Pending Received Result Diagram: 10/09/17 1450 Imaging Last Impressions Chest X-Ray 10/09/17 1448 Signed Impressions: Service Date/Time: Monday, October 09, 2017 14:53 - CONCLUSION: 1. Interval intubation and placement of nasogastric tube. 2. No confluent infiltrates or effusions. Lux Murphy MD Head CT 10/09/17 0000 Signed Impressions: Service Date/Time: Monday, October 09, 2017 15:17 - CONCLUSION: 1. Suboptimal examination secondary to streak and motion artifact. 2. No evidence of hemorrhage or mass effect identified. Lux Murphy MD Caprini VTE Risk Assessment Caprini VTE Risk Assessment: Mod/High Risk (score >= 2) Caprini Risk Assessment Model Point Value = 1 Point Value = 2 Point Value = 3 Point Value = 5 Age 41-60 Minor surgery BMI > 25 kg/m2 Swollen legs Varicose veins or History of unexplained or recurrent spontaneous Oral contraceptives or hormone replacement Sepsis (< 1 month) Serious lung disease, including pneumonia (< 1 month) Abnormal pulmonary function Acute myocardial infarction Congestive heart failure (< 1 month) History of inflammatory bowel disease Medical patient at bed rest Age 61-74 Arthroscopic surgery Major open surgery (> 45 min) Laparoscopic surgery (> 45 min) Malignancy Confined to bed (> 72 hours) Immobilizing plaster cast Central venous access Age >= 75 History of VTE Family history of VTE Factor V Leiden Prothrombin 26120V Lupus anticoagulant Anticardiolipin antibodies Elevated serum homocysteine Heparin-induced thrombocytopenia Other congenital or acquired thrombophilia Stroke (< 1 month) Elective arthroplasty Hip, pelvis, or leg fracture Acute spinal cord injury (< 1 month) Prophylaxis Regimen Total Risk Factor Score Risk Level Prophylaxis Regimen 0-1 Low Early ambulation 2 Moderate Order ONE of the following: *Sequential Compression Device (SCD) *Heparin 5000 units SQ BID 3-4 Higher Order ONE of the following medications: *Heparin 5000 units SQ TID *Enoxaparin/Lovenox 40 mg SQ daily (WT < 150 kg, CrCl > 30 mL/min) *Enoxaparin/Lovenox 30 mg SQ daily (WT < 150 kg, CrCl > 10-29 mL/min) *Enoxaparin/Lovenox 30 mg SQ BID (WT < 150 kg, CrCl > 30 mL/min) AND/OR *Sequential Compression Device (SCD) 5 or more Highest Order ONE of the following medications: *Heparin 5000 units SQ TID (Preferred with Epidurals) *Enoxaparin/Lovenox 40 mg SQ daily (WT < 150 kg, CrCl > 30 mL/min) *Enoxaparin/Lovenox 30 mg SQ daily (WT < 150 kg, CrCl > 10-29 mL/min) *Enoxaparin/Lovenox 30 mg SQ BID (WT < 150 kg, CrCl > 30 mL/min) AND *Sequential Compression Device (SCD) Assessment and Plan Assessment and Plan Assessment: 67-year-old male with end-stage renal disease and a loop recorder implanted who presents after out of hospital ventricular fibrillation cardiac arrest. Will proceed with hypothermic protocol. Will heparinize for presumed acute coronary syndrome given ventricular fibrillation. Consult cardiology, and I have spoken to Dr. Youssef who agrees with the plan. If his neurologic status improves, we will pursue coronary intervention, however given his poor neurologic exam, we will defer coronary intervention at the present time and hemodynamically neurologically stabilized patient. He remains very critically ill. Plan by systems: Neurologic: Hypoxic ischemic encephalopathy Frequent neurochecks Versed and fentanyl to ensure amnesia during hypothermia Meperidine to prevent shivering Cisatricurium to prevent shivering Avoid long-acting sedatives Ativan for any seizure-like activity CT brain 10/09- for acute hemorrhage Respiratory: Acute hypoxic and hypercarbic respiratory failure Nebs Head of bed elevated Vent bundle No weaning of mechanical ventilation until neurologic status improves ABG now in the morning Chest x-ray in the morning Wean FiO2 for goal SPO2 greater than 90% Cardiovascular: Out of hospital ventricular fibrillation cardiac arrest ACS equivalent Type I NSTEMI Atrial fibrillation with rapid ventricular response Trend troponins Cardiology consult: Dr. Youssef Amiodarone load and drip given recent V. tach and V. fib Have called [employer] to interrogate loop recorder Heparin drip for ACS Rectal aspirin stat. Renal: End-stage renal disease on intermittent hemodialysis -- Strict I/Os Place [place] Consult nephrology to assist in management of his end-stage renal disease FEN/GI: Hypokalemia N.p.o. while hypothermic Aggressive replacement of electrolytes during hypothermia, even given his severe end-stage renal disease, as electrode shifts can be severe. Normal saline at 84 cc an hour Heme/ID: Anemia, unknown cause, likely chronic disease No infectious etiology suspected this time Daily CBC Does not meet transfusion triggers this time Endocrine: Hyperglycemia of critical illness -- SSI, medium scale, every 4 Prophylaxis: GI Prophylaxis Pepcid IV DVT Prophylaxis -- SCDs Heparin drip for ACS Lines: 10/09 right femoral triple-lumen catheter placed in the emergency department: Keep this for now, but will remove this after 24 hours 10/09 left femoral arterial line 10/09 left femoral code cool catheter [place] Dispo: Admit to ICU. Critically ill. This patient remains critically ill with one or more organ systems which are or may become a threat to life. I have spent in excess of 80 minutes discontinuously in the care and management of this patient. This time is exclusive of procedures, and includes, but is not limited to, evaluation of the patient, review of the medical record, discussions with family, consultants, nursing staff, or respiratory therapy, and documentation in the medical record. Froylan Coffey MD Oct 09, 2017 16:39
[2017-10-09] MEDS: CISATRACURIUM INJ 100 MG in SODIUM CHLOR 0.9% 250 ML INJ 240 ML IV PRN (17:11)
[2017-10-09] MEDS: AMIODARONE INJ 450 MG in SODIUM CHLOR 0.9% (EXCEL) INJ 241 ML IV PRN (17:12)
[2017-10-09] MEDS: HEPARIN-D5W 25,000 U/250 ML 250 ML IV PRN (17:15)
[2017-10-09 17:30] LABS: INTERNATIONAL NORMALIZED RATIO 1.1 RATIO; PROTHROMBIN TIME - PATIENT 11.6 SEC (9.8-11.6)
--- NOTE | 2017-10-09 17:35 | ECHRPT ---
Indication: CARDIAC ARREST CONCLUSIONS Moderately dilated left ventricle. Wall thickness is normal. The left ventricular systolic function is [id number] reduced with an estimated ejection fra ction in the range of 35-40%. The left ventricle is not well visualized. There was limited left ventricular wall motion assessment due to poor endocardial visualization. There is abnormal septal motion consistent with an intraventricular conduction delay. Mitral annular calcification is present. Trace mitral valve regurgitation. The pulmonary valve is not well visualized. There is a trivial pericardial effusion present. BP: / HR: Rhythm: MEASUREMENTS (Male / Female) Normal Values Technical Quality: 2D ECHO LV Diastolic Diameter PLAX 5.7 cm 4.2 - 5.9 / 3.9 - 5.3 cm LV Systolic Diameter PLAX 4.9 cm IVS Diastolic Thickness 1.1 cm 0.6 - 1.0 / 0.6 - 0.9 cm LVPW Diastolic Thickness 1.0 cm 0.6 - 1.0 / 0.6 - 0.9 cm LV Relative Wall Thickness 0.4 RV Internal Dim ED PLAX 2.1 cm LA Systolic Diameter LX 3.8 cm 3.0 - 4.0 / 2.7 - 3.8 cm LV Ejection Fraction MOD 4C 37.1 % LV Ejection Fraction 4C AL 38.3 % DOPPLER Mitral E Point Velocity 114.0 cm/s TR Peak Velocity 192.7 cm/s TR Peak Gradient 14.8 mmHg FINDINGS LEFT VENTRICLE Moderately dilated left ventricle. Wall thickness is normal. The left ventricular systolic function is lazmayya-fq-ulgnish reduced with an estimated ejection fra ction in the range of 35-40%. The left ventricle is not well visualized. There was limited left ventricular wall motion assessment due to poor endocardial visualization. There is abnormal septal motion consistent with an intraventricular conduction delay. RIGHT VENTRICLE Normal right ventricular size and systolic function. LEFT ATRIUM The left atrial size is normal. RIGHT ATRIUM The right atrial size is normal. ATRIAL SEPTUM Normal atrial septal thickness without atrial level shunting by limited color doppler interrogation. AORTA The aortic root and proximal ascending aorta are normal in size on limited imaging. MITRAL VALVE Mitral annular calcification is present. Trace mitral valve regurgitation. AORTIC VALVE Trileaflet aortic valve. No aortic valve stenosis or regurgitation. TRICUSPID VALVE Structurally normal tricuspid valve. No tricuspid valve stenosis or regurgitation. PULMONARY VALVE The pulmonary valve is not well visualized. VESSELS The inferior vena cava is normal in size. PERICARDIUM There is a trivial pericardial effusion present. Troy Hernandez MD, FACC (Electronically Signed) Final Date:09 October 2017 17:34
[2017-10-09 17:40] LABS: MAGNESIUM 2.1 MG/DL (1.5-2.5); PHOSPHORUS 3.7 MG/DL (2.5-4.9)
[2017-10-09 17:57] LABS: AUTOMATED NEUTROPHIL # 20.1 TH/MM3 (1.8-7.7); BASOPHIL % 0.1 % (0.0-2.0); EOSINOPHIL # 0.2 TH/MM3 (0-0.4); EOSINOPHIL % 0.8 % (0.0-4.0); HEMOGLOBIN 7.9 GM/DL (13.0-17.0); LYMPH % 8.4 % (9.0-44.0); MEAN CELL VOLUME 100.9 FL (80.0-100.0); MEAN CORPUSCULAR HEMOGLOBIN 33.3 PG (27.0-34.0); MEAN PLATELET VOLUME 9.4 FL (7.0-11.0); MONOCYTE # 1.4 TH/MM3 (0-0.9); NEUT % 84.7 % (16.0-70.0); PLATELET COUNT 212 TH/MM3 (150-450); RED BLOOD COUNT 2.38 MIL/MM3 (4.50-5.90); WHITE BLOOD COUNT 23.8 TH/MM3 (4.0-11.0)
--- NOTE | 2017-10-09 18:03 | MB ---
cc: Malcolm Youssef MD DATE: 10/09/2017 REASON FOR CONSULTATION: Evaluation post-ventricular fibrillation arrest. HISTORY OF PRESENT ILLNESS: Bala Ashby is a 67-year-old patient of my colleague, Dr. Her. The patient is known to have end-stage renal disease on dialysis. He has had problems with hypotension and has required midodrine for that. He has not been diagnosed with severe heart disease. He does have cardiac risk factors including hypertension, diabetes and obesity. He has had a previous workup by Dr. Her. He had an echocardiogram and Doppler study 07/04/2016 showing normal left ventricular function, moderately sclerotic aortic valve. He had a had a nuclear stress test 07/23/2016 showing a small, mostly fixed inferolateral defect that appeared artifactual. There was no significant perfusion defects to indicate clinically important ischemia. When the patient was seen last in the office 08/17/2017, he did not have any anginal type symptoms. His only issue was some hypotension after dialysis. The patient presented to the hospital today after a VF arrest. Apparently, he was receiving hemodialysis at home. The family member stated he yelled out and they found him unresponsive. Patient has an insertable loop recorder and on the loop recorder can be seen that he went into ventricular fibrillation at 2:54 p.m. and he was in it continuously for a period of 11 minutes, then it looks like he had a second episode of ventricular fibrillation and then after that had a bradycardic rhythm. The patient has a [place] coma scale of 3. He has been started on hypothermia protocol. PAST MEDICAL HISTORY: Includes benign prostatic hypertrophy, carpal tunnel syndrome, diabetes, end-stage renal disease, hyperlipidemia, hypertensive heart disease, irregular heartbeat and left atrial enlargement. PAST SURGICAL HISTORY: Includes loop recorder implantation and sinus surgery. MEDICATIONS: Prior to admission from the office includes atorvastatin and levothyroxine. He was not on anticoagulation. ALLERGIES: INCLUDE SULFA. FAMILY HISTORY: Positive for CHF in a paternal grandmother. SOCIAL HISTORY: He quit smoking about a year ago, from old records. PHYSICAL EXAMINATION: GENERAL: Shows an obese, sedated patient. HEENT: Unremarkable. NECK: Does not show JVD or bruits. LUNGS: Chest is clear anteriorly. HEART: S1, S2, irregular rate and rhythm with a II/ systolic ejection murmur. ABDOMEN: Obese, soft, and nontender. EXTREMITIES: Reveal diminished pedal and radial pulses, but he is on Levophed at this time. DIAGNOSTIC STUDIES: His EKG shows atrial fibrillation with diffuse ST-T abnormalities, possible ischemia. LABORATORY DATA: Hematocrit 31.7. Platelet count is 184,000. White count is 13,300. Potassium was 3.1, calcium 11.9. Troponin 1.48. IMAGING STUDIES: Chest x-ray is showing a heart size, upper limits of normal. Lung apices were cut off, but no infiltrates or effusions seen. IMPRESSION AND PLAN: Status post ventricular fibrillation arrest. The ventricular fibrillation arrest was quite prolonged. Mental status is severely diminished. The patient currently getting cooling hypothermia to see if we can salvage brain function. Should he show signs of salvage, he will need a heart catheterization for the purposes of seeing if he has coronary ischemia as the cause of the arrest, which would be considerably likely. In the meantime, the patient is heparinized and getting hypothermia protocol. Further therapy to be determined. MD JAMIE Key/PHILLIP , 05:38 PM , 06:02 PM
--- NOTE | 2017-10-09 18:27 | PD.PROCEDR ---
Procedure Note Procedure Procedure: Arterial Line Placement Left femoral 18-gauge arterial line Diagnosis: Status post out of hospital cardiac arrest Indications: Need for beat to beat hemodynamic monitoring Consent: Emergent Description of the Procedure: The left groin was prepped and draped sterilely. 1% lidocaine was used for local anesthesia. The pulse was located and a needle was advanced into the artery. A 18 gauge, 16 cm catheter was advanced into the artery using a modified Seldinger technique. The catheter was sutured to the skin and a sterile dressing was applied. The catheter was connected to a pressure transducer and an arterial waveform was noted. There were no immediate complications noted. There was minimal EBL. I personally performed the procedure. Froylan Coffey MD Oct 09, 2017 18:27
--- NOTE | 2017-10-09 18:28 | PD.PROCEDR ---
Procedure Note Procedure Central Line Procedure Note Left femoral hypothermic cooling catheter Diagnosis: Out of hospital cardiac arrest Indications: Need for therapeutic hypothermia Consent: Emergent Anesthesia: none Description of the Procedure: The patient was placed in the supine, mild- Trendelenburg position. The area was prepped and draped sterilely. A 19g needle was inserted under negative pressure aspiration and dark venous blood was obtained. A guidewire was inserted easily without resistance. A small incision was made using a #11 blade. Using a modified Seldinger technique, the dilator and cooling catheter were advanced over the guidewire without resistance. All ports were aspirated and flushed, and had brisk blood return. The line was secured at the skin using 2-0 silk interrupted sutures. A Biopatch and Transparent sterile dressing were applied. There were no immediate complications noted. There was minimal EBL. The patient tolerated the procedure well. Ultrasound guidance was not used for this procedure. Suture was used to secure the line to the skin because the non-suture StatLock device would not fit the shape and configuration of the cooling catheter. I personally performed the procedure. Froylan Coffey MD Oct 09, 2017 18:28
[2017-10-09] MEDS: NOREPINEPHRINE INJ 4 MG in SODIUM CHLOR 0.9% 250 ML INJ 246 ML IV PRN (18:34)
[2017-10-09] MEDS: RESP: ALBUTEROL 2.5 MG/IPRATROPIUM 0.5 MG NEB (SCH) INH (19:13)
[2017-10-09] MEDS: CHLORHEXIDINE 0.12% (ORAL KIT) 15 ML CUP MT SCH (20:00)
[2017-10-09] MEDS: INSULIN NovoLIN REGULAR SUPPLEMENTAL SCALE SQ SCH (20:00)
[2017-10-09] MEDS: SODIUM CHLORIDE 0.9% FLUSH 10 ML FLUSH IV FLUSH SCH (20:59)
[2017-10-09] MEDS: FAMOTIDINE 20 MG/2 ML VIAL IV PUSH SCH (21:00)
[2017-10-09] MEDS ORDERED: HEPARIN SODIUM - IV 10,000 UNITS/10 ML VIAL IV PUSH PRN ×2 (22:30)
[2017-10-10] VITALS (16 sets, daily range): BP systolic 81–161; BP diastolic 38–72; PULSE 50–99; RESP 18–22; TEMP 91–91.4; O2SAT 92–99
[2017-10-10] MEDS: CISATRACURIUM INJ 100 MG in SODIUM CHLOR 0.9% 250 ML INJ 240 ML IV PRN ×6 (01:47→15:50)
[2017-10-10] MEDS: NOREPINEPHRINE INJ 4 MG in SODIUM CHLOR 0.9% 250 ML INJ 246 ML IV PRN ×4 (01:47→15:50)
[2017-10-10] MEDS: RESP: ALBUTEROL 2.5 MG/IPRATROPIUM 0.5 MG NEB (SCH) INH ×4 (03:10→21:03)
[2017-10-10] MEDS: INSULIN NovoLIN REGULAR SUPPLEMENTAL SCALE SQ SCH ×3 (04:00→08:00)
[2017-10-10] MEDS: CHLORHEXIDINE GLUCONATE 2 % 1 PACK (2 CLOTHS) TOP SCH (04:00)
[2017-10-10] MEDS: AMIODARONE INJ 450 MG in SODIUM CHLOR 0.9% (EXCEL) INJ 241 ML IV PRN ×2 (04:07→19:04)
[2017-10-10] MEDS: SODIUM CHLOR 0.9% 1000 ML INJ 1,000 ML IV SCH ×7 (04:18→23:52)
[2017-10-10 04:53] LABS: HEMATOCRIT 24.5 % (39.0-51.0); HEMOGLOBIN 8.1 GM/DL (13.0-17.0); MEAN CELL VOLUME 100.3 FL (80.0-100.0); MEAN CORPUSCULAR HEMOGLOBIN 33.3 PG (27.0-34.0); MEAN CORPUSCULAR HGB CONC 33.2 % (32.0-36.0); MEAN PLATELET VOLUME 9.3 FL (7.0-11.0); PLATELET COUNT 182 TH/MM3 (150-450); RED BLOOD COUNT 2.44 MIL/MM3 (4.50-5.90); RED CELL DISTRIBUTION WIDTH 15.5 % (11.6-17.2); WHITE BLOOD COUNT 21.6 TH/MM3 (4.0-11.0)
[2017-10-10 05:19] LABS: BICARBONATE 16.4 MEQ/L (21.0-32.0); CALCIUM 8.4 MG/DL (8.5-10.1); CREATININE 6.34 MG/DL (0.60-1.30)
--- NOTE | 2017-10-10 06:05 | RADRPT ---
EXAM DATE/TIME: 10/10/2017 05:12 [facility] COMPARISON: CHEST SINGLE AP, October 09, 2017, 14:53. INDICATIONS : Shortness of breath, possible pneumothorax. MEDICAL HISTORY : Hypercholesterolemia. Hypertension Diabetes mellitus type II. Renal disease. SURGICAL HISTORY : Loop recorder ENCOUNTER: Subsequent ACUITY: 2 days PAIN SCORE: Non-responsive. LOCATION: Bilateral chest FINDINGS: A single view of the chest demonstrates the endotracheal tube, nasogastric tube are both in good posi tion. There is a small right-sided pneumothorax laterally. The pneumothorax is new from the previous study. Heart and mediastinum are stable. Osseous structures are intact. CONCLUSION: Inferolateral right-sided pneumothorax measuring up to 2 cm across. It is new from the previous study . There is more apical fluid on the right than the previous study also. Troy Krishna MD on October 10, 2017 at 6:01 Board Certified Radiologist. This report was verified electronically.
[2017-10-10] MEDS: CHLORHEXIDINE 0.12% (ORAL KIT) 15 ML CUP MT SCH ×2 (08:31→22:33)
[2017-10-10] MEDS: SODIUM CHLORIDE 0.9% FLUSH 10 ML FLUSH IV FLUSH SCH ×2 (08:31→22:33)
--- NOTE | 2017-10-10 08:42 | HHI.CCPN ---
Subjective Remarks/Hospital Course Hospital course: This is a 67-year-old male with a history of end-stage renal disease on home hemodialysis who presents from home where he was actively undergoing dialysis and slumped over and became unresponsive. Per EMS initial rhythm was ventricular fibrillation he was defibrillated a number of times in the out of hospital setting. ACLS ensued. ACLS was ongoing when he reached the emergency department which was continued. After multiple additional DC cardioversions, ROSC was obtained. I was called emergently to the bedside. I immediately came to the bedside and found an unresponsive patient with pupils which were 4 mm and reactive but otherwise is a GCS of 3. No additional information is available from the patient, and ROS is unobtainable. Per review of the medical record, he has a complicated history and was recently had a loop recorder placed in April 2017, but I do not of the indication for this. His head CT is negative for acute bleed. His BMP is remarkable for potassium 3.1, creatinine of 6.19, glucose of 353, troponin is elevated at 1.48, lactate is 11.9 initially. White blood cell count of 23,000, hemoglobin 7.9 with an unknown baseline. Due to his poor neurologic function and the clear timeline from event to ROSC, therapeutic hypothermia was initiated. Subjective: 10/10: remains hypothermic per protocol. very acidotic. Objective Vital Signs Date Time Temp Pulse Resp B/P (MAP) Pulse Ox O2 Delivery O2 Flow Rate FiO2 10/10/17 08:08 99 45 10/10/17 07:00 91.4 57 22 131/72 (91) 137/65 (89) 10/09/17 14:52 Ventilator Intake and Output 10/10/17 10/10/17 10/11/17 08:00 16:00 00:00 Intake Total 2276 ml Output Total 200 ml Balance 2076 ml Result Diagram: 10/10/17 0440 10/10/17 0440 Other Results Laboratory Tests Test 10/10/17 03:45 Blood Gas Puncture Site ART LINE Blood Gas Patient Temperature 98.6 Blood Gas HCO3 14 mmol/L (22-26) Blood Gas Base Excess -11.3 mmol/L (-2-2) Blood Gas Oxygen Saturation 95 % (90-100) Arterial Blood pH 7.27 (7.380-7.420) Arterial Blood Partial Pressure CO2 32 mmHg (38-42) Arterial Blood Partial Pressure O2 123 mmHg (61-120) Arterial Blood Oxygen Content 10.7 Vol % (12.0-20.0) Arterial Blood Carboxyhemoglobin 1.0 % (0-4) Arterial Blood Methemoglobin 1.4 % (0-2) Blood Gas Hemoglobin 7.8 G/DL (12.0-16.0) Oxygen Delivery Device VENTILATOR Blood Gas Ventilator Setting PRVC Blood Gas Inspired Oxygen 55 % Imaging Last Impressions Chest X-Ray 10/09/17 1448 Signed Impressions: Service Date/Time: Monday, October 09, 2017 14:53 - CONCLUSION: 1. Interval intubation and placement of nasogastric tube. 2. No confluent infiltrates or effusions. Lux Murphy MD Head CT 10/09/17 0000 Signed Impressions: Service Date/Time: Monday, October 09, 2017 15:17 - CONCLUSION: 1. Suboptimal examination secondary to streak and motion artifact. 2. No evidence of hemorrhage or mass effect identified. Lux Murphy MD Objective Remarks GENERAL: Middle-age male, lying in bed, intubated, obtunded, unresponsive HEENT: Normocephalic. Atraumatic. Pupils 4 mm equal, round, reactive, conjugate. Mucous membranes are moist NECK: Trachea is midline. There is no JVD. CHEST: Equal chest rise. Intermittent agonal respirations. PRVC. 80% FiO2. CARDIOVASCULAR: Tachycardic rate, irregularly irregular rhythm. Appears A. fib by telemetry. There is evidence of CPR with ecchymoses over the anterior chest. ABDOMEN: Soft, nontender, nondistended. No guarding. MUSCULOSKELETAL: Pulses 2+. No peripheral edema. Extremities are cool and poorly perfused. There is a right femoral triple lumen catheter placed in the ER with the dressing clean dry and intact. NEUROLOGICAL: RASS -5. GCS 3. Pupils as above. Negative cough. Negative gag. Positive corneals. Patient has not received any neuromuscular blockade or sedation since EMS arrived. A/P Assessment and Plan Assessment: 67-year-old male with end-stage renal disease and a loop recorder implanted who presents after out of hospital ventricular fibrillation cardiac arrest. Continue hypothermic protocol. nephrology and cardiology on board. if neurologic exam improves, will need LHC and coronary investigation. From a nephrology standpoint, may be a better candidate for CRRT than IHD given fluid shifts with IHD may add additional stress to neurologic function. will discuss with nephrology. Remains very critically ill at this time. Plan by systems: Neurologic: Hypoxic ischemic encephalopathy Frequent neurochecks Versed and fentanyl to ensure amnesia during hypothermia Meperidine to prevent shivering Cisatricurium to prevent shivering Avoid long-acting sedatives Ativan for any seizure-like activity CT brain 10/09- for acute hemorrhage Respiratory: Acute hypoxic and hypercarbic respiratory failure Nebs Head of bed elevated Vent bundle No weaning of mechanical ventilation until neurologic status improves ABG now in the morning Chest x-ray in the morning Wean FiO2 for goal SPO2 greater than 90% Cardiovascular: Out of hospital ventricular fibrillation cardiac arrest ACS equivalent Type I NSTEMI Atrial fibrillation with rapid ventricular response Trend troponins Cardiology consult: Dr. Youssef Amiodarone drip given recent V. tach and V. fib medtronic interrogation: first episode of v. fib lasted 11 minutes. Heparin drip for ACS daily ASA Renal: End-stage renal disease on intermittent hemodialysis -- Strict I/Os continue [place] Consult nephrology to assist in management of his end-stage renal disease FEN/GI: Hypokalemia Metabolic acidosis- anion gap N.p.o. while hypothermic Aggressive replacement of electrolytes during hypothermia, even given his severe end-stage renal disease, as electrode shifts can be severe. saline lock ivf. Heme/ID: Anemia, unknown cause, likely chronic disease No infectious etiology suspected this time Daily CBC Does not meet transfusion triggers this time Endocrine: Hyperglycemia of critical illness -- SSI, medium scale, every 4 Prophylaxis: GI Prophylaxis Pepcid IV DVT Prophylaxis -- SCDs Heparin drip for ACS Lines: 10/09 right femoral triple-lumen catheter placed in the emergency department 10/09 left femoral arterial line 10/09 left femoral code cool catheter [place] Dispo: Admit to ICU. Critically ill. This patient remains critically ill with one or more organ systems which are or may become a threat to life. I have spent in excess of 41 minutes discontinuously in the care and management of this patient. This time is exclusive of procedures, and includes, but is not limited to, evaluation of the patient, review of the medical record, discussions with family, consultants, nursing staff, or respiratory therapy, and documentation in the medical record. Froylan Coffey MD Oct 10, 2017 08:42
[2017-10-10] MEDS ORDERED: DEXTROSE 50% IN WATER 50 ML VIAL(D50) IV PUSH PRN (09:00)
[2017-10-10] MEDS: FAMOTIDINE 20 MG/2 ML VIAL IV PUSH SCH (09:12)
[2017-10-10] MEDS: INSULIN REGULAR (IV INFUSION) 100 UNITS in SODIUM CHLORIDE 0.9% INJ 99 ML IV PRN ×3 (10:01→23:33)
--- NOTE | 2017-10-10 13:35 | PD.CARD.PN ---
Subjective Subjective Remarks sedated Objective Medications Current Medications Medications (Trade) Dose Ordered Sig/Caron Route Start Time Stop Time Status Last Admin (Peridex 0.12% Liq) 15 ml BID@08,20 MT 10/09/17 20:00 10/10/17 08:31 (D50w (Vial) Inj) 25 ml UNSCH PRN IV PUSH 10/09/17 16:30 (Duoneb Neb) 1 ampule Q6HR NEB INH 10/09/17 22:00 10/10/17 08:07 (Duoneb Neb) 1 ampule Q2HR NEB PRN INH 10/09/17 16:30 Sodium Chloride 1,000 ml @ 42 mls/hr [id number] IV 10/09/17 16:23 10/10/17 09:25 (Tylenol) 650 mg Q6H PRN PO 10/09/17 16:30 (Pepcid Inj) 20 mg Q12HR IV PUSH 10/09/17 21:00 10/10/17 09:12 (Zofran Inj) 4 mg Q6H PRN IV PUSH 10/09/17 16:30 Miscellaneous Information 1 [id number] XX 10/09/17 16:30 (Chlorhexidine 2% Cloth) 3 pack Taper DAILY@04 TOP 10/10/17 04:00 10/06/18 03:59 (Chlorhexidine 2% Cloth) 3 pack UNSCH PRN TOP 10/09/17 16:30 Midazolam HCl 100 ml @ 2 mls/hr TITRATE PRN IV 10/09/17 16:30 Fentanyl Citrate 250 ml @ 5 mls/hr TITRATE PRN IV 10/09/17 16:30 10/09/17 17:06 (Ativan Inj) 1 mg Q1H PRN IV PUSH 10/09/17 16:30 (Demerol Inj) 25 mg Q2H PRN IV PUSH 10/09/17 16:30 (Buspar) 15 mg BID PRN NG 10/09/17 16:30 Cisatracurium Besylate 100 mg/ Sodium Chloride 250 ml @ 49.5 mls/hr TITRATE PRN IV 10/09/17 17:00 10/10/17 11:38 (Lacrilube Opht Oint) 1 applic Q4H PRN EACH EYE 10/09/17 16:30 (NS Flush) 2 ml BID IV FLUSH 10/09/17 21:00 10/10/17 08:31 (NS Flush) 2 ml UNSCH PRN IV FLUSH 10/09/17 16:30 Miscellaneous Information 0 ml @ 0 mls/hr UNSCH IV 10/09/17 16:30 Norepinephrine Bitartrate 4 mg/ Sodium Chloride 250 ml @ 7.5 mls/hr TITRATE PRN IV 10/09/17 16:30 10/10/17 09:25 (Heparin Inj) 5,000 units UNSCH PRN IV PUSH 10/09/17 22:30 (Heparin Inj) 2,500 units UNSCH PRN IV PUSH 10/09/17 22:30 Heparin Sodium/ Dextrose 250 ml @ 10 mls/hr TITRATE PRN IV 10/09/17 16:30 10/09/17 17:15 Amiodarone HCl 450 mg/Sodium Chloride 250 ml @ 33.33 mls/ hr [id number] PRN IV 10/09/17 17:00 10/10/17 04:07 Insulin Human Regular 100 units/ Sodium Chloride 100 ml @ 3 mls/hr TITRATE PRN IV 10/10/17 09:00 10/10/17 10:01 (D50w (Vial) Inj) 50 ml UNSCH PRN IV PUSH 10/10/17 09:00 Vital Signs / I&O Vital Signs Date Time Temp Pulse Resp B/P (MAP) Pulse Ox O2 Delivery O2 Flow Rate FiO2 10/10/17 11:15 98 45 10/10/17 11:00 91.4 58 22 133/72 (92) 99 131/62 (85) 10/10/17 11:00 58 10/10/17 11:00 58 131/62 10/10/17 09:25 58 138/66 10/10/17 08:08 99 45 10/10/17 07:00 91.4 57 22 131/72 (91) 99 137/65 (89) 10/10/17 07:00 57 10/10/17 07:00 57 137/65 10/10/17 07:00 57 137/65 10/10/17 04:26 99 55 10/10/17 04:07 57 10/10/17 04:00 57 135/62 10/10/17 03:00 50 10/10/17 03:00 56 10/10/17 03:00 124 124/60 10/10/17 03:00 91.4 56 22 122/65 (84) 99 124/60 (81) 10/10/17 01:47 44 126/54 10/10/17 00:06 98 55 10/09/17 23:00 46 10/09/17 23:00 91.4 47 22 108/56 (73) 97 105/56 (72) 10/09/17 19:30 91.8 80 22 146/82 (103) 94 146/82 (103) 10/09/17 19:14 97 65 10/09/17 19:00 82 10/09/17 18:10 107 10/09/17 17:21 121 10/09/17 17:12 121 10/09/17 17:10 112 10/09/17 16:50 80 10/09/17 16:39 97.2 114 24 164/84 (110) 100 10/09/17 15:51 10/09/17 15:39 99 100 10/09/17 14:57 127 20 142/73 (96) 100 100 10/09/17 14:52 128 20 100 Ventilator 100 10/09/17 14:52 100 Ventilator 100 10/09/17 14:50 100 10/09/17 14:41 90 Bag Valve 10/09/17 14:23 100 100 I/O 10/09/17 10/09/17 10/09/17 10/10/17 10/10/17 10/10/17 07:00 15:00 23:00 07:00 15:00 23:00 Intake Total 850 ml 2276 ml Output Total 0 ml 200 ml Balance 850 ml 2076 ml Intake IV Total 850 ml 2276 ml Output Urine Total 0 ml Gastric Drainage Total 0 ml 200 ml # Bowel Movements 0 Physical Exam Tele sinus cristy with first degree AV block. Occasional junctional Chest clear ant CV soft S1, nl S@ cristy, no murmur Echo EF 35-40% slight puffy - no pitting Laboratory Laboratory Tests Test 10/09/17 14:50 10/09/17 17:00 10/09/17 17:30 10/09/17 22:30 Prothrombin Time 11.5 SEC 11.6 SEC Prothromb Time International Ratio 1.1 RATIO 1.1 RATIO Activated Partial Thromboplast Time 24.3 SEC 25.2 SEC 75.3 SEC Blood Urea Nitrogen 35 MG/DL Creatinine 6.19 MG/DL Random Glucose 353 MG/DL Total Protein 5.7 GM/DL Albumin 3.0 GM/DL Calcium Level 9.7 MG/DL Magnesium Level 2.5 MG/DL 2.1 MG/DL Alkaline Phosphatase 125 U/L Aspartate Amino Transf (AST/SGOT) 76 U/L Alanine Aminotransferase (ALT/SGPT) 83 U/L Total Bilirubin 0.6 MG/DL Sodium Level 139 MEQ/L Potassium Level 3.1 MEQ/L Chloride Level 98 MEQ/L Carbon Dioxide Level 21.8 MEQ/L Anion Gap 19 MEQ/L Estimat Glomerular Filtration Rate 9 ML/MIN Lactic Acid Level 11.9 mmol/L 7.2 mmol/L Total Creatine Kinase 86 U/L Troponin I 1.48 NG/ML 4.91 NG/ML Nasal Screen MRSA (PCR) MRSA NOT DETECTED Phosphorus Level 3.7 MG/DL White Blood Count 23.8 TH/MM3 Red Blood Count 2.38 MIL/MM3 Hemoglobin 7.9 GM/DL Hematocrit 24.0 % Mean Corpuscular Volume 100.9 FL Mean Corpuscular Hemoglobin 33.3 PG Mean Corpuscular Hemoglobin Concent 33.0 % Red Cell Distribution Width 16.0 % Platelet Count 212 TH/MM3 Mean Platelet Volume 9.4 FL Neutrophils (%) (Auto) 84.7 % Lymphocytes (%) (Auto) 8.4 % Monocytes (%) (Auto) 6.0 % Eosinophils (%) (Auto) 0.8 % Basophils (%) (Auto) 0.1 % Neutrophils # (Auto) 20.1 TH/MM3 Lymphocytes # (Auto) 2.0 TH/MM3 Monocytes # (Auto) 1.4 TH/MM3 Eosinophils # (Auto) 0.2 TH/MM3 Basophils # (Auto) 0.0 TH/MM3 CBC Comment DIFF FINAL Differential Comment Test 10/10/17 03:45 10/10/17 04:40 10/10/17 07:22 10/10/17 10:45 Blood Gas Puncture Site ART LINE Blood Gas Patient Temperature 98.6 Blood Gas HCO3 14 mmol/L Blood Gas Base Excess -11.3 mmol/L Blood Gas Oxygen Saturation 95 % Arterial Blood pH 7.27 Arterial Blood Partial Pressure CO2 32 mmHg Arterial Blood Partial Pressure O2 123 mmHg Arterial Blood Oxygen Content 10.7 Vol % Arterial Blood Carboxyhemoglobin 1.0 % Arterial Blood Methemoglobin 1.4 % Blood Gas Hemoglobin 7.8 G/DL Oxygen Delivery Device VENTILATOR Blood Gas [facility]ilator Setting [facility] Blood Gas Inspired Oxygen 55 % White Blood Count 21.6 TH/MM3 Red Blood Count 2.44 MIL/MM3 Hemoglobin 8.1 GM/DL Hematocrit 24.5 % Mean Corpuscular Volume 100.3 FL Mean Corpuscular Hemoglobin 33.3 PG Mean Corpuscular Hemoglobin Concent 33.2 % Red Cell Distribution Width 15.5 % Platelet Count 182 TH/MM3 Mean Platelet Volume 9.3 FL Activated Partial Thromboplast Time 107.7 SEC 56.0 SEC Blood Urea Nitrogen 50 MG/DL Creatinine 6.34 MG/DL Random Glucose 351 MG/DL Calcium Level 8.4 MG/DL Sodium Level 140 MEQ/L Potassium Level 3.9 MEQ/L Chloride Level 103 MEQ/L Carbon Dioxide Level 16.4 MEQ/L Anion Gap 21 MEQ/L Estimat Glomerular Filtration Rate 9 ML/MIN Troponin I 4.90 NG/ML 4.22 NG/ML Test 10/10/17 13:00 Activated Partial Thromboplast Time 49.4 SEC Imaging Last 24 hours Impressions Chest X-Ray 10/10/17 0600 Signed Impressions: Service Date/Time: Tuesday, October 10, 2017 05:12 - CONCLUSION: Inferolateral right-sided pneumothorax measuring up to 2 cm across. It is new from the previous study. There is more apical fluid on the right than the previous study also. Troy Krishna MD Chest X-Ray 10/09/17 1448 Signed Impressions: Service Date/Time: Monday, October 09, 2017 14:53 - CONCLUSION: 1. Interval intubation and placement of nasogastric tube. 2. No confluent infiltrates or effusions. Lux Murphy MD Assessment and Plan Problem List: (1) Cardiomyopathy ICD Codes: I42.9 - Cardiomyopathy, unspecified (2) Elevated troponin ICD Codes: R74.8 - Abnormal levels of other serum enzymes (3) Anoxic encephalopathy ICD Codes: G93.1 - Anoxic brain damage, not elsewhere classified (4) First degree atrioventricular block ICD Codes: I44.0 - Atrioventricular block, first degree (5) Sinus bradycardia ICD Codes: R00.1 - Bradycardia, unspecified (6) Ventricular fibrillation ICD Codes: I49.01 - Ventricular fibrillation (7) Sudden cardiac ICD Codes: I46.9 - Cardiac arrest, cause unspecified Assessment and Plan Stop amiodarone. If he has neuro recovery after he is rewarmed he will need cardiac cath Malcolm Youssef MD Oct 10, 2017 13:35
--- NOTE | 2017-10-10 13:56 | HHI.NPPN ---
Subjective General Problems: Anemia, Edema, Hypotension Renal Failure: End Stage Renal Disease Additional Remarks Patient remain on the vent. and sedated, on pressors for low BP. Objective Data Data Vital Signs Date Time Temp Pulse Resp B/P (MAP) Pulse Ox O2 Delivery O2 Flow Rate FiO2 10/10/17 13:50 98 45 10/10/17 11:15 98 45 10/10/17 11:00 91.4 58 22 133/72 (92) 99 131/62 (85) 10/10/17 11:00 58 10/10/17 11:00 58 131/62 10/10/17 09:25 58 138/66 10/10/17 08:08 99 45 10/10/17 07:00 91.4 57 22 131/72 (91) 99 137/65 (89) 10/10/17 07:00 57 10/10/17 07:00 57 137/65 10/10/17 07:00 57 137/65 10/10/17 04:26 99 55 10/10/17 04:07 57 10/10/17 04:00 57 135/62 10/10/17 03:00 50 10/10/17 03:00 56 10/10/17 03:00 124 124/60 10/10/17 03:00 91.4 56 22 122/65 (84) 99 124/60 (81) 10/10/17 01:47 44 126/54 10/10/17 00:06 98 55 10/09/17 23:00 46 10/09/17 23:00 91.4 47 22 108/56 (73) 97 105/56 (72) 10/09/17 19:30 91.8 80 22 146/82 (103) 94 146/82 (103) 10/09/17 19:14 97 65 10/09/17 19:00 82 10/09/17 18:10 107 10/09/17 17:21 121 10/09/17 17:12 121 10/09/17 17:10 112 10/09/17 16:50 80 10/09/17 16:39 97.2 114 24 164/84 (110) 100 10/09/17 15:51 10/09/17 15:39 99 100 10/09/17 14:57 127 20 142/73 (96) 100 100 10/09/17 14:52 128 20 100 Ventilator 100 10/09/17 14:52 100 Ventilator 100 10/09/17 14:50 100 10/09/17 14:41 90 Bag Valve 10/09/17 14:23 100 100 -: 10/10/17 0440 10/10/17 0440 Microbiology 10/09/17 Aerobic Blood Culture - Preliminary, Resulted NO GROWTH IN 1 DAY 10/09/17 Anaerobic Blood Culture - Preliminary, Resulted NO GROWTH IN 1 DAY 10/09/17 Aerobic Blood Culture - Preliminary, Resulted NO GROWTH IN 1 DAY 10/09/17 Anaerobic Blood Culture - Preliminary, Resulted NO GROWTH IN 1 DAY Physical Exam General Appearance Remarks Intubated and sedated. Throat Throat Exam: Oral Mucosa [place] & Moist Neck Neck Exam: Neck Supple Pulmonary Resp Exam: Breath Sounds Equal, Rhonchi, Decreased Bases, Diminished Breath Sounds, Poor Inspiratory Effort Cardiology CV Exam: Regular, Normal Sinus Rhythm Gastrointestinal/Abdomen GI Exam: Soft, Non-Tender, Bowel Sounds Present, Distended Extremeties Extremities Exam: Moderate Edema, Pitting Edema, Dependent Edema Neurologic Neuro Exam: Sedated Assessment/Plan Assessment Summary: Hypotension, End Stage Renal Disease Problem List: (1) Hypotension ICD Codes: I95.9 - Hypotension, unspecified (2) End stage chronic kidney disease ICD Codes: N18.6 - End stage renal disease (3) Anemia ICD Codes: D64.9 - Anemia, unspecified Status: Chronic (4) Diabetes mellitus type 2, insulin dependent ICD Codes: E11.9 - Type 2 diabetes mellitus without complications; Z79.4 - quiller hand (current) use of insulin Status: Acute (5) Cardiomyopathy ICD Codes: I42.9 - Cardiomyopathy, unspecified (6) Ventricular fibrillation ICD Codes: I49.01 - Ventricular fibrillation Plan Patient was admitted with Cardiac arrest, while was on HHD. BP is low, on pressors. To start CRRT. K is normal, and has no acidosis. Cardiology following. Possibly has some anoxic brain damage. D/W the at bed side. Debbie Marie MD Oct 10, 2017 13:56
--- NOTE | 2017-10-10 14:07 | EKG ---
Date Performed: 10/09/2017 Time Performed: 14:23:31 PTAGE: 67 years EKG: ATRIAL FIBRILLATION WITH RAPID VENTRICULAR RESPONSE WITH ABERRANT CONDUCTION OR VENTRICULAR PREMATURE COMPLEXES MODERATE INTRAVENTRICULAR CONDUCTION DELAY MARKED ST DEPRESSION, CONSIDER SUBEN DOCARDIAL INJURY ABNORMAL ECG Compared to PREVIOUS TRACING , atrial fibrillation with a rapid ventricular response is now present. Nonspecific ST-T wave changes are also now present. PREVIOUS TRACIN06/24/2016 09.45.37 DOCTOR: Jared Chiang Interpretating Date/Time 10/10/2017 14:06:53
--- NOTE | 2017-10-10 14:43 | EKG ---
Date Performed: 10/09/2017 Time Performed: 14:46:24 PTAGE: 67 years EKG: ATRIAL FIBRILLATION WITH ABERRANT CONDUCTION OR VENTRICULAR PREMATURE COMPLEXES ST DEVIATIO N AND MODERATE T-WAVE ABNORMALITY, CONSIDER LATERAL ISCHEMIA ABNORMAL ECG Since PREVIOUS TRACING , no significant change noted PREVIOUS TRACIN10/09/2017 14.23.31 DOCTOR: Jared Chiang Interpretating Date/Time 10/10/2017 14:45:20
[2017-10-10] MEDS ORDERED: ASPIRIN 325 MG TAB PO SCH (15:30)
[2017-10-10] MEDS ORDERED: CALCIUM CHLORIDE 10% SOLN 1 GRAM/10 ML SYR ONE (16:27)
[2017-10-10] MEDS ORDERED: SODIUM BICARBONATE 8.4% INJ 50 MEQ/50 ML SYR ONE (16:27)
[2017-10-10] MEDS ORDERED: VASOPRESSIN 40 U/D5W 100 ML Titrate, Post Cardiac Surgery IV PRN ×2 (16:45)
[2017-10-10] MEDS ORDERED: ALBUMIN 25% INJ 100 ML IV ONE (16:48)
[2017-10-10] MEDS ORDERED: EPINEPHrine HCL (1:1000) 1 MG/ML VIAL ONE (16:58)
[2017-10-10] MEDS ORDERED: CISATRACURIUM IV PRN (17:45)
[2017-10-10] MEDS ORDERED: SODIUM CHLOR 0.9% IV PRN (17:45)
[2017-10-10] MEDS: HEPARIN-D5W 25,000 U/250 ML 250 ML IV PRN (17:49)
[2017-10-10] MEDS: NOREPINEPHRINE INJ 16 MG in SODIUM CHLOR 0.9% 250 ML INJ 234 ML IV PRN ×2 (19:54→23:20)
[2017-10-10] MEDS ORDERED: EPINEPHrine (1:1000) INJ 2 MG in SODIUM CHLOR 0.9% 250 ML INJ 250 ML IV PRN (20:15)
[2017-10-10] MEDS ORDERED: NOREPINEPHRINE INJ 16 MG in SODIUM CHLOR 0.9% 250 ML INJ 234 ML IV PRN (20:45)
[2017-10-10] MEDS ORDERED: FAMOTIDINE 20 MG/2 ML VIAL IV PUSH SCH (21:00)
[2017-10-10] MEDS ORDERED: ALBUMIN 5% INJ 500 ML IV ONE (22:55)
[2017-10-11] VITALS: BP_SYST 116; BP_SYST 127; BP_DIAS 63; BP_DIAS 82; PULSE 83; PULSE 84; RESP 18; TEMP 92.4; O2SAT 99
[2017-10-11 00:44] VITALS: O2SAT 95
[2017-10-11] MEDS ORDERED: ALBUMIN 5% INJ 250 ML IV ONE (01:10)
[2017-10-11] MEDS ORDERED: SODIUM BICARBONATE 8.4% INJ 50 MEQ/50 ML SYR ONE (01:39)
--- NOTE | 2017-10-11 01:54 | RADRPT ---
EXAM DATE/TIME: 10/11/2017 01:22 [facility] COMPARISON: CHEST SINGLE AP, October 10, 2017, 5:12. INDICATIONS : Shortness of breath. MEDICAL HISTORY : Hypercholesterolemia. Hypertension Diabetes mellitus type II. renal disease. SURGICAL HISTORY : Loop recorder ENCOUNTER: Subsequent ACUITY: 3 days PAIN SCORE: Non-responsive. LOCATION: Bilateral chest FINDINGS: There is a small to moderate right pneumothorax. Endotracheal tube in good position. NG enters stomac h. Cardiomegaly. Basilar airspace disease and pleural effusions. CONCLUSION: 1. Right-sided pneumothorax similar in appearance to October 10. Basilar airspace disease and pleural e ffusions remain. Nasogastric tube and endotracheal tube unchanged. Bruce Oseguera MD on October 11, 2017 at 1:46 Board Certified Radiologist. This report was verified electronically.
[2017-10-11] MEDS ORDERED: SODIUM BICARBONATE 8.4% SOLN 50 MEQ/50 ML VIAL IV SCH (02:00)
[2017-10-11] MEDS ORDERED: POTASSIUM CHLOR 40 MEQ PREMIX 100 ML IV SCH ×2 (02:00→04:30)
[2017-10-11] MEDS: SODIUM CHLOR 0.9% 1000 ML INJ 1,000 ML IV SCH ×2 (02:19→04:16)
[2017-10-11] MEDS: NOREPINEPHRINE INJ 16 MG in SODIUM CHLOR 0.9% 250 ML INJ 234 ML IV PRN (03:30)
[2017-10-11] MEDS: RESP: ALBUTEROL 2.5 MG/IPRATROPIUM 0.5 MG NEB (SCH) INH (03:36)
[2017-10-11 03:38] VITALS: O2SAT 71
[2017-10-11 04:00] VITALS: BP_SYST 63; BP_SYST 83; BP_DIAS 30; BP_DIAS 49; PULSE 66; RESP 18; TEMP 92.7; O2SAT 69
[2017-10-11] MEDS: CHLORHEXIDINE GLUCONATE 2 % 1 PACK (2 CLOTHS) TOP SCH (04:00)
[2017-10-11 04:20] VITALS: PULSE 65
[2017-10-11] MEDS ORDERED: EPINEPHrine HCL (1:10,000) 1 MG/10 ML SYRINGE IV ONE (05:50)
[2017-10-11] MEDS ORDERED: CALCIUM CHLORIDE 10% SOLN 1 GRAM/10 ML SYR IV ONE (05:50)
[2017-10-11] MEDS ORDERED: LIDOCAINE HCL 2% 100 MG/5 ML SYRINGE IV PUSH ONE (05:50)
--- NOTE | 2017-10-11 06:06 | DEATH SUM ---
Pronouncement Date Pronounced : Oct 11, 2017 Time Of : 05:51 Pronouncement Called to pronounce of patient. Identified patient as Bala Ashby with wrist band MR# [id number]. Patient with no cardiac activity in 2 separate leads and no palpable/auscible cardiac activity. Patient with no spontaneous respirations, no corneal reflex or response to painful stimuli. Pupils fixed and dilated. Preliminary Cause of : Cardiac arrest Albert Roman MD Oct 11, 2017 06:06
--- NOTE | 2017-10-12 09:33 | MB ---
cc: Naheed Marie MD DATE: 10/09/2017 REASON FOR CONSULTATION: End-stage renal disease on hemodialysis for management. HISTORY OF PRESENT ILLNESS: This is a 67-year-old male with a past medical history of chronic hypotension, history of end-stage renal disease, on hemodialysis with history of crescentic and necrotizing glomerulonephritis, history of chronic anemia, end-stage renal disease on home hemodialysis started recently, was brought to the hospital after a cardiac arrest at home. I was called to see the patient because of management of dialysis. The patient has been on hemodialysis for almost 2 years and he has been having problem with blood pressure, which usually remains on the lower side and recently about 2 months ago he started home hemodialysis and the helping him and he is doing home hemodialysis 5 times a week. He was doing his regular dialysis today and according to , the blood pressure was reasonably better. His usual blood pressure goes down a systolic of 90s and sometimes in the 80s, but his blood pressure today according to the was above 100. The patient was doing reasonably well and suddenly she noticed that he became unresponsive and she started doing CPR and called 911 and the [facility] came and found the patient has atrial fibrillation and asystole and ____ CPR and patient was admitted. Most of the history was taken from patient's chart and some from the patient's . PAST MEDICAL HISTORY: Diabetes mellitus, hyperlipidemia, end-stage renal disease, on home hemodialysis, history of crescentic glomerulonephritis, chronic anemia, benign prostatic hypertrophy. PAST SURGICAL HISTORY: Left arm AV fistula surgery, colonoscopy, sinus surgery, cardiac catheterization. REVIEW OF SYSTEMS: Cannot be taken since the patient is intubated and on sedation. ALLERGIES: HE IS ALLERGIC TO SULFA. SOCIAL HISTORY: The patient is . He has past history of smoking. There is no history of heavy alcoholism. FAMILY HISTORY: Noncontributory. ALLERGIES: TO SULFA. MEDICATIONS: Currently, he is on normal saline at 84 an hour. He is on DuoNeb nebulizer, famotidine 20 mg IV q. 12 hours, regular insulin sliding scale, Zofran as needed, [place] as needed, norepinephrine, sedation. PHYSICAL EXAMINATION: GENERAL: The patient is intubated and sedated. VITAL SIGNS: His last blood pressure is 164/84, temperature is 97.2, oxygen saturation on 80% FIO2 is 100%. HEENT: Pupils are unequal, anicteric sclerae, conjunctivae pale. NECK: Supple. JVD is not elevated. LUNGS: ____ scattered wheezing and basilar rales. HEART: S1, S2. Regular rhythm. ABDOMEN: Distended, soft, lax. There is no tenderness. EXTREMITIES: He has mild edema in the legs. Left arm AV fistula which is still good bruit. INVESTIGATIONS: CBC is still pending. Sodium is 139, potassium 3.1, chloride 98, bicarbonate 21.8, BUN 35, creatinine 6.1. Lactic acid is 11.9, phosphorus 3.7, magnesium 2.1, AST 76, ALT is 83. Trop I is 1.48. Creatine kinase is 86, total protein is 5.7, albumin of 3.0. IMAGING STUDY: The patient has a CT scan of the brain done which shows that he has no evidence of hemorrhage or mass effect. ASSESSMENT AND PLAN: 1. Post-cardiac arrest. 2. Respiratory failure. 3. Lactic acidosis. 4. End-stage renal disease on home hemodialysis. 5. History of anemia. 6. Diabetes mellitus. The patient has AFib and cardiac arrest and now he is on hypothermic protocol. The patient has incomplete dialysis today. His potassium is in the lower side. There is no acute urgent need for dialysis at present. We will watch him and decide about further dialysis depending on his labs and his clinical condition. Cardiology has been consulted. Will wait for further input from them. Echocardiogram done. Thank you for the consultation. I will follow Mr. Ashby ____. Debbie Marie MD AQJ/rt , 06:03 PM , 08:26 PM [facility]
== END 2017-10-11 05:51 | disposition expired ==
LOC: NEPE 14:13 → HCVI 15:30
PROVIDERS: ADMIT Internal Medicine Critical Care Medicine; ATTEND Internal Medicine Critical Care Medicine
PROC: 04HL33Z Insertion of Infusion Device into Left Femoral Artery, Percutaneous Approach (ICD-10-PCS; 2017-10-09)
PROC: 06HY33Z Insertion of Infusion Device into Lower Vein, Percutaneous Approach (ICD-10-PCS; 2017-10-09)
PROC: 30253N1 (ICD-10-PCS; principal; 2017-10-10)
DX: I47.2 Ventricular tachycardia (principal); I46.2 Cardiac arrest due to underlying cardiac condition; N18.6 End stage renal disease; I21.4 Non-ST elevation (NSTEMI) myocardial infarction; I49.01 Ventricular fibrillation; J96.01 Acute respiratory failure with hypoxia; J96.02 Acute respiratory failure with hypercapnia; G93.1 Anoxic brain damage, not elsewhere classified; I42.9 Cardiomyopathy, unspecified; E87.2 Acidosis; I13.11 Hypertensive heart and chronic kidney disease without heart failure, with stage 5 chronic kidney disease, or end stage renal disease; I95.89 Other hypotension; E11.22 Type 2 diabetes mellitus with diabetic chronic kidney disease; R40.2433 Glasgow coma scale score 3-8, at hospital admission; E11.65 Type 2 diabetes mellitus with hyperglycemia; I48.91 Unspecified atrial fibrillation; E87.6 Hypokalemia; D63.1 Anemia in chronic kidney disease; E66.9 Obesity, unspecified; N40.0 Benign prostatic hyperplasia without lower urinary tract symptoms; E78.5 Hyperlipidemia, unspecified; N05.7 Unspecified nephritic syndrome with diffuse crescentic glomerulonephritis; I44.0 Atrioventricular block, first degree; R60.9 Edema, unspecified; K59.00 Constipation, unspecified; M19.90 Unspecified osteoarthritis, unspecified site; Z79.4 Long term (current) use of insulin; Z99.2 Dependence on renal dialysis; Z82.49 Family history of ischemic heart disease and other diseases of the circulatory system; Z87.891 Personal history of nicotine dependence
CPT/HCPCS: 36430; 36556; 70450; 71045; 76937; 80048; 80053; 82550; 82805; 82948; 83605; 83735; 84100; 84484; 85014; 85025; 85027; 85610; 85730; 86850; 86900; 86901; 86920; 87040; 87147; 87205; 87641; 92950; 93005; 93306; 94002; 94003; 94640; 94664; J0171; J0282; J1644; J1817; J3010; J3480; J7030; J7050; P9016; P9045; P9047